=== PATIENT | male | born 1950 | race Caucasian/White ===

== ENCOUNTER 2016-10-08 18:26 | Emergency (ER) | payer OTHER ==
[~2016-10-08] VITALS: Ht 177.8 cm; Wt 64.0 kg
[2016-10-08 18:28] VITALS: BP 149/69; PULSE 78; RESP 20; TEMP 97.3; O2SAT 96
--- NOTE | 2016-10-08 18:59 | PD ---
HPI Chief Complaint: Alcohol/Drug Intoxication Time Seen by Provider: 18:59 Travel History International Travel<30 days: No Contact w/Intl Traveler<30days: No Traveled to known affect area: No History of Present Illness HPI 66-year-old male with a history of alcohol abuse is brought to the emergency department from outpatient rehabilitation facility [facility]. The patient states that he has struggled with alcohol abuse for over 30 years. States that over the past 5 years he has been drinking about a 16 pack of beer daily. States that he probably drank more than that today. States that his alcohol abuse has begun to interfere with his job and his finances so he is seeking to detox from alcohol. States he was accepted at this [facility] yesterday and was to be admitted to their facility tonight. States that they sent him over here to get medical clearance to be admitted to their facility. The paperwork from the facility says "blood alcohol of 0.4 and altered mental status." The patient is not altered or confused at all. He is awake, alert and oriented to person, place, time and situation. He denies any complaints at this time. He denies any chest pain, shortness of breath, abdominal pain, nausea, vomiting, headache, lightheadedness , dizziness. PFSH Past Medical History Hypertension: Yes Tetanus Vaccination: > 5 Years Past Surgical History Appendectomy: Yes Cholecystectomy: Yes Social History Alcohol Use: Yes (states too many to count) Tobacco Use: Yes (3 ppd ) Substance Use: Yes (marijuana) Allergies-Medications (Allergen,Severity, Reaction): Coded Allergies: No Known Allergies (Unverified , 10/08/16) Review of Systems Except as stated in HPI: all other systems reviewed are Neg Physical Exam Narrative GENERAL: Well-nourished and well-developed pleasant male patient in no acute distress who is nontoxic appearing. SKIN: Warm and dry. HEAD: Normocephalic and atraumatic. EYES: No injection, drainage, or hyphema noted. PERRLA. EOMI. ENT: No nasal drainage noted. Oropharynx is clear. NECK: Supple and the trachea is midline. CARDIOVASCULAR: Regular rate and rhythm. RESPIRATORY: Breath sounds are equal bilaterally with no accessory muscle use, wheezing, rhonchi, or crackles. GASTROINTESTINAL: Abdomen is soft, non-tender, and nondistended. MUSCULOSKELETAL: No obvious deformities, swelling, cyanosis, or ecchymosis is present throughout the upper and lower extremities. Patient has full range of motion without any signs of neurovascular compromise. Strength 5/5 upper and lower extremities equal bilaterally. NEUROLOGICAL: Awake, alert, and oriented. Normal speech and gait. Cranial nerves are grossly intact. Data Data Last Documented VS Vital Signs Date Time Temp Pulse Resp B/P Pulse Ox O2 Delivery O2 Flow Rate FiO2 10/08/16 21:22 98.1 90 18 123/57 94 Room Air Orders Complete Blood Count With Diff (10/08/16 18:58) Comprehensive Metabolic Panel (10/08/16 18:58) Drug Screen, Random Urine (10/08/16 18:58) Alcohol (Ethanol) (10/08/16 18:58) Sodium Chlor 0.9% 1000 Ml Inj (Ns 1000 M (10/08/16 19:57) Sodium Chlor 0.9% 1000 Ml Inj (Ns 1000 M (10/08/16 19:57) Basic Metabolic Panel (Bmp) (10/08/16 20:57) Protein Corrected Calcium(Pcc) (10/08/16 21:30) Calcium Gluconate (Calcium Gluconate) (10/08/16 22:30) Potassium Chloride (Kcl) (10/08/16 22:30) Labs Laboratory Tests Test 10/08/16 10/08/16 10/08/16 19:00 19:10 21:30 White Blood Count 7.7 TH/MM3 Red Blood Count 4.80 MIL/MM3 Hemoglobin 14.7 GM/DL Hematocrit 42.2 % Mean Corpuscular Volume 88.0 FL Mean Corpuscular Hemoglobin 30.6 PG Mean Corpuscular Hemoglobin 34.8 % Concent Red Cell Distribution Width 13.5 % Platelet Count 257 TH/MM3 Mean Platelet Volume 6.3 FL Neutrophils (%) (Auto) 62.7 % Lymphocytes (%) (Auto) 27.6 % Monocytes (%) (Auto) 6.9 % Eosinophils (%) (Auto) 2.0 % Basophils (%) (Auto) 0.8 % Neutrophils # (Auto) 4.8 TH/MM3 Lymphocytes # (Auto) 2.1 TH/MM3 Monocytes # (Auto) 0.5 TH/MM3 Eosinophils # (Auto) 0.2 TH/MM3 Basophils # (Auto) 0.1 TH/MM3 CBC Comment DIFF FINAL Differential Comment Sodium Level 125 MEQ/L 134 MEQ/L Potassium Level 4.1 MEQ/L 3.4 MEQ/L Chloride Level 93 MEQ/L 102 MEQ/L Carbon Dioxide Level 20.6 MEQ/L 19.7 MEQ/L Anion Gap 11 MEQ/L 12 MEQ/L Blood Urea Nitrogen 11 MG/DL 12 MG/DL Creatinine 0.86 MG/DL 0.83 MG/DL Estimat Glomerular Filtration 89 ML/MIN 93 ML/MIN Rate Random Glucose 72 MG/DL 129 MG/DL Calcium Level 7.6 MG/DL 7.0 MG/DL Total Bilirubin 0.3 MG/DL Aspartate Amino Transf 31 U/L (AST/SGOT) Alanine Aminotransferase 48 U/L (ALT/SGPT) Alkaline Phosphatase 136 U/L Total Protein 8.3 GM/DL Albumin 3.2 GM/DL Ethyl Alcohol Level 191 MG/DL Urine Opiates Screen NEG Urine Barbiturates Screen NEG Urine Amphetamines Screen NEG Urine Benzodiazepines Screen NEG Urine Cocaine Screen NEG Urine Cannabinoids Screen NEG [facility] Medical Decision Making Medical Screen Exam Complete: Yes Emergency Medical Condition: Yes Differential Diagnosis Alcohol intoxication versus alcohol abuse versus electrolyte abnormality Narrative Course 66-year-old male presents to the emergency department for medical clearance to enroll in a detox facility for alcohol abuse. Patient is afebrile, vital signs are stable. Physical examination is unremarkable. Labs were drawn and sent. CBC is unremarkable. CMP shows significant hyponatremia with a sodium of 125, decreased bicarbonate of 20.6. Alkaline phosphatase is a little elevated. Urine tox is negative. EtOH is 191. Patient stable and without complaint while here in the ED. Patient ordered 2 L of fluid. I discussed with Dr. Bowman and Dr. Knowles admitting physician and we have agreed to recheck BMP after fluids. Repeat BMP shows sodium has improved to 134 and calcium is 7.0. He's administered calcium tablets. He is stable for discharge to his detox facility. Diagnosis Primary Impression: Alcohol abuse Referrals: Primary Care Physician Patient Instructions: Abuse of Alcohol (ED), General Instructions Additional Instructions: Follow-up with your Primary Care Physician. Return to the ED for any acute worsening of symptoms. Med/Other Pt SpecificInfo: No Change to Meds Disposition: 70 TRANSFER TO OTHER FACILITY Condition: Stable Mona Tobias Oct 08, 2016 18:59
[2016-10-08 19:13] LABS: AUTOMATED NEUTROPHIL # 4.8 TH/MM3 (1.8-7.7); BASOPHIL # 0.1 TH/MM3 (0-0.2); BASOPHIL % 0.8 % (0.0-2.0); EOSINOPHIL # 0.2 TH/MM3 (0-0.4); HEMATOCRIT 42.2 % (39.0-51.0); HEMO FLAGS DIFF FINAL; LYMPH % 27.6 % (9.0-44.0); LYMPHOCYTE # 2.1 TH/MM3 (1.0-4.8); MEAN CORPUSCULAR HEMOGLOBIN 30.6 PG (27.0-34.0); MEAN CORPUSCULAR HGB CONC 34.8 % (32.0-36.0); MONO % 6.9 % (0.0-8.0); NEUT % 62.7 % (16.0-70.0); PLATELET COUNT 257 TH/MM3 (150-450); RED CELL DISTRIBUTION WIDTH 13.5 % (11.6-17.2); WHITE BLOOD COUNT 7.7 TH/MM3 (4.0-11.0)
[2016-10-08 19:31] LABS: AMPHETAMINE, URINE NEG (NEG); BARBITURATES, URINE NEG (NEG); COCAINE, URINE NEG (NEG)
[2016-10-08 19:40] LABS: ANION GAP 11 MEQ/L (5-15)
[2016-10-08 19:44] LABS: ALKALINE PHOSPHATASE 136 U/L (45-117); ALT (GPT) 48 U/L (12-78); AST (GOT) 31 U/L (15-37); BICARBONATE 20.6 MEQ/L (21.0-32.0); BLOOD UREA NITROGEN 11 MG/DL (7-18); CHLORIDE 93 MEQ/L (98-107); GLOMERULAR FILTRATION RATE 89 ML/MIN (>89); POTASSIUM 4.1 MEQ/L (3.5-5.1); SODIUM (NA) 125 MEQ/L (136-145); TOTAL BILIRUBIN ADULT 0.3 MG/DL (0.2-1.0)
[2016-10-08] MEDS ORDERED: SODIUM CHLOR 0.9% 1000 ML INJ 1,000 ML IV SCH ×2 (19:57)
[2016-10-08 21:22] VITALS: BP 123/57; PULSE 90; RESP 18; TEMP 98.1; O2SAT 94
[2016-10-08 22:05] LABS: BICARBONATE 19.7 MEQ/L (21.0-32.0); POTASSIUM 3.4 MEQ/L (3.5-5.1)
[2016-10-08] MEDS ORDERED: CALCIUM GLUCONATE 500 MG TAB PO ONE (22:30)
[2016-10-08] MEDS ORDERED: POTASSIUM CHLORIDE 20 MEQ CONTROLLED RELEASE TAB PO ONE (22:30)
[2016-10-08 23:13] LABS: CALCIUM-PROTEIN CORRECTED 7.3 MG/DL (8.5-10.1)
== END 2016-10-08 23:36 | disposition short-term general hospital (02) ==
LOC: NEPC 18:26
DX: F10.10 Alcohol abuse, uncomplicated (principal); I10 Essential (primary) hypertension; F17.200 Nicotine dependence, unspecified, uncomplicated; Y90.6 Blood alcohol level of 120-199 mg/100 ml
CPT/HCPCS: 80053; 80307; 80320; 84155; 85025; 96360; 99284; J7030; 80048